=== PATIENT | female | born 1985 | race African-American/Black ===

== ENCOUNTER 2018-02-23 08:31 | Observation (INO) | payer SELFPAY ==
[~2018-02-23] VITALS: Ht 167.6 cm; Wt 72.6 kg
[2018-02-23] MEDS ORDERED: LIDOCAINE HCL 1% 20ML VIAL (Pyxis) INJ INFIL PRN (08:45)
[2018-02-23] MEDS ORDERED: METHYLERGONOVINE MALEATE 0.2 MG/ML IM PRN (08:45)
[2018-02-23 10:00] LABS: CLARITY URINE CLEAR (CLEAR); COLOR URINE DARK YELLOW (YELLOW); KETONES URINE TRACE (NEGATIVE); LEUKOCYTE ESTERASE URINE TRACE (NEGATIVE); NITRITE URINE NEGATIVE (NEGATIVE); OCCULT BLOOD URINE NEGATIVE (NEGATIVE); PH URINE 5.5 (4.5-8.0); PROTEIN URINE 1+ (NEGATIVE); SPECIFIC GRAVITY URINE 1.031 (1.005-1.030)
[2018-02-23 10:09] LABS: HEMATOCRIT. 24.2 % (36.0-48.0); HEMOGLOBIN. 7.5 g/dL (12.0-16.0); MEAN CORPUSCULAR HEMOGLOBIN 21.4 pg (28.0-32.0); MEAN CORPUSCULAR VOLUME 69.7 fL (81.0-99.0); PLATELET 270 x1000/uL (130-400); RED BLOOD CELL COUNT 3.48 mill/uL (4.2-5.4); RED CELL DISTRIBUTION WIDTH 17.2 % (11.6-14.6)
[2018-02-23 10:13] LABS: CHLORIDE 103 mEq/L (98-107)
[2018-02-23] MEDS: LACTATED RINGERS 1,000 ML IV SCH (10:41)
[2018-02-23] MEDS: DEXT 5%/LR + PITOCIN 20UNITS/L 1,000 ML IV SCH ×2 (10:54→11:11)
[2018-02-23 11:03] LABS: *COCAINE SCREEN URINE NEGATIVE (NEGATIVE); CANNABINOID URINE SCREEN NEGATIVE (NEGATIVE); METHADONE URINE SCREEN NEGATIVE (NEGATIVE); OPIATES URINE SCREEN NEGATIVE (NEGATIVE); PHENCYCLIDINE URINE SCREEN NEGATIVE (NEGATIVE)
[2018-02-23 11:05] LABS: *BENZODIAZEPINES SCREEN URINE NEGATIVE (NEGATIVE)
[2018-02-23 11:11] LABS: *BARBITURATES SCREEN URINE NEGATIVE (NEGATIVE)
[2018-02-23 11:21] LABS: *AMPHETAMINES SCREEN URINE PRESUMTIVE POSITIVE (NEGATIVE)
[2018-02-23] MEDS ORDERED: HYDRALAZINE 20MG/ML VIAL IV NR (11:30)
[2018-02-23 11:44] LABS: HEPATITIS B SURFACE ANTIGEN NEGATIVE; RUBELLA IGG 8.8 IU/mL (4.99-10)
[2018-02-23 11:53] LABS: PROTHROMBIN TIME 10.1 sec (9.4-11.6)
[2018-02-23] MEDS: LABETALOL HCL 100MG TABLET PO SCH ×2 (11:55→23:59)
[2018-02-23 12:45] VITALS: BP 129/88
[2018-02-23 13:02] LABS: PLATELET ESTIMATE NORMAL
[2018-02-23 13:15] VITALS: BP 124/79
[2018-02-23] MEDS ORDERED: DEXT 5%/LR + PITOCIN 20UNITS/L 1,000 ML IV SCH (14:18)
[2018-02-23] MEDS ORDERED: RHO(D) IMMUNE GLOBULIN 300 MCG/SYR IM PRN (14:30)
[2018-02-23] MEDS ORDERED: IBUPROFEN 400MG TABLET PO PRN (14:30)
[2018-02-23] MEDS ORDERED: ACETAMINOPHEN WITH CODEINE 300/30MG TABLET PO PRN ×2 (14:30)
[2018-02-23] MEDS ORDERED: TETANUS, DIPHTHERIA, PERTUSSIS VAC/PF 0.5ML (>7YR OLD) IM ONE (14:30)
[2018-02-23] MEDS ORDERED: DIPHENHYDRAMINE 25MG CAPSULE PO PRN (14:30)
[2018-02-23 20:10] VITALS: BP 134/77
[2018-02-23] MEDS: DOCUSATE SODIUM 100MG CAPSULE PO SCH (21:00)
[2018-02-23 23:55] VITALS: BP 141/93
[2018-02-24 03:35] VITALS: BP 130/77
[2018-02-24 07:51] LABS: BASOPHILS % 0.4 % (0.0-2.0); EOSINOPHILS % 10.7 % (0.0-5.0); LYMPHOCYTES % 9.2 % (20.0-50.0); MEAN CORPUSCULAR HEMOGLOBIN 21.4 pg (28.0-32.0); MEAN CORPUSCULAR VOLUME 68.5 fL (81.0-99.0); MEAN PLATELET VOLUME 7.9 fl (7.4-10.4); MONOCYTES % 6.5 % (2.0-8.0); NEUTROPHILS % 73.2 % (40.0-76.0); PLATELET 252 x1000/uL (130-400); RED BLOOD CELL COUNT 2.93 mill/uL (4.2-5.4); RED CELL DISTRIBUTION WIDTH 17.1 % (11.6-14.6)
[2018-02-24 08:08] LABS: HEMOGLOBIN. 6.3 g/dL (12.0-16.0)
[2018-02-24 08:09] LABS: HEMATOCRIT. 20.1 % (36.0-48.0)
[2018-02-24 08:10] VITALS: BP 124/67
[2018-02-24] MEDS ORDERED: PRENATAL VIT/FE FUMARATE/FA TABLET PO SCH (09:00)
[2018-02-24] MEDS: FERROUS SULFATE 325MG TABLET PO SCH ×3 (09:04→13:32)
[2018-02-24] MEDS ORDERED: MEDROXYPROGESTERONE ACETATE 150MG/ML VIAL IM NR (09:30)
[2018-02-24 12:00] VITALS: BP 133/81
[2018-02-24 16:20] VITALS: BP 136/77
[2018-02-24 19:55] VITALS: BP 127/77
[2018-02-24] MEDS: LABETALOL HCL 100MG TABLET PO SCH (21:12)
[2018-02-24] MEDS: DOCUSATE SODIUM 100MG CAPSULE PO SCH (21:12)
[2018-02-24 23:40] VITALS: BP 111/77
[2018-02-25 03:45] VITALS: BP 123/65
[2018-02-25 08:30] VITALS: BP 138/79
[2018-02-25 10:07] LABS: RF PROFILE 11.8 IU/mL (0.0-13.9)
[2018-03-02 05:24] LABS: AMPHETAMINE CONF URINE Positive (.)
== END 2018-02-25 09:00 | disposition home or self-care (01) ==
LOC: L&D 08:31 → 7EST PP/OB 12:40
PROVIDERS: ADMIT Specialist; ATTEND Specialist
DX: O72.0 Third-stage hemorrhage (principal); O99.02 Anemia complicating childbirth; D64.9 Anemia, unspecified; O99.324 Drug use complicating childbirth; O99.314 Alcohol use complicating childbirth; F15.10 Other stimulant abuse, uncomplicated; F10.10 Alcohol abuse, uncomplicated; Z37.0 Single live birth
CPT/HCPCS: 36415; 80053; 80305; 80307; 80359; 81003; 85025; 85610; 86200; 86431; 86592; 86703; 86762; 86850; 86900; 86901; 87340; 88307; 96372; 96374; G0378; J0360; J1050; J7040; J7120; J2590

== ENCOUNTER 2019-12-20 05:09 | Emergency (ER) | payer MEDICAID ==
[~2019-12-20] VITALS: Ht 167.6 cm; Wt 68.0 kg
[2019-12-20 05:12] VITALS: BP 125/72
[2019-12-20 07:34] LABS: CLARITY URINE CLEAR (CLEAR); COLOR URINE YELLOW (YELLOW); KETONES URINE TRACE (NEGATIVE); LEUKOCYTE ESTERASE URINE 1+ (NEGATIVE); NITRITE URINE NEGATIVE (NEGATIVE); OCCULT BLOOD URINE NEGATIVE (NEGATIVE); PROTEIN URINE TRACE (NEGATIVE); SPECIFIC GRAVITY URINE 1.033 (1.005-1.030)
== END 2019-12-20 08:30 | disposition left against medical advice (07) ==
LOC: ER 05:09
DX: O23.42 Unspecified infection of urinary tract in pregnancy, second trimester (principal); Z20.2 Contact with and (suspected) exposure to infections with a predominantly sexual mode of transmission; Z3A.20 20 weeks gestation of pregnancy
CPT/HCPCS: 81003; 81025; 99283

== ENCOUNTER 2020-01-14 22:10 | Emergency (ER) | payer MEDICAID ==
[~2020-01-14] VITALS: Ht 167.6 cm; Wt 80.0 kg
[2020-01-14 22:29] VITALS: BP 133/59
== END 2020-01-14 22:40 | disposition home or self-care (01) ==
LOC: ER 22:10
DX: R10.9 Unspecified abdominal pain (principal); Z53.21 Procedure and treatment not carried out due to patient leaving prior to being seen by health care provider
CPT/HCPCS: 99281

== ENCOUNTER 2020-01-14 23:05 | Observation (INO) | payer MEDICAID ==
[~2020-01-14] VITALS: Ht 167.6 cm; Wt 63.5 kg
== END 2020-01-14 23:55 | disposition home or self-care (01) ==
LOC: 8 EST LDRP 23:05
PROVIDERS: ADMIT Obstetrics & Gynecology; ATTEND Obstetrics & Gynecology
DX: O26.893 Other specified pregnancy related conditions, third trimester (principal); R10.13 Epigastric pain; Z3A.29 29 weeks gestation of pregnancy
CPT/HCPCS: 99281; G0378

== ENCOUNTER 2020-02-14 09:59 | Inpatient (IN) | payer MEDICAID ==
[~2020-02-14] VITALS: Ht 167.6 cm; Wt 61.2 kg
[2020-02-14] MEDS ORDERED: DEXT 5%/LR + PITOCIN 20UNITS/L 1,000 ML IV SCH ×2 (11:27→11:28)
[2020-02-14] MEDS ORDERED: LACTATED RINGERS 1,000 ML IV SCH (11:27)
[2020-02-14] MEDS ORDERED: RHO(D) IMMUNE GLOBULIN 300 MCG/SYR IM PRN (11:30)
[2020-02-14] MEDS ORDERED: METHYLERGONOVINE MALEATE 0.2 MG/ML IM PRN (11:30)
[2020-02-14] MEDS ORDERED: IBUPROFEN 400MG TABLET PO PRN (11:30)
[2020-02-14] MEDS ORDERED: IBUPROFEN 800MG TABLET PO PRN (11:30)
[2020-02-14] MEDS ORDERED: CARBOPROST TROMETHAMINE 250 MCG/ML AMPUL IM PRN (11:30)
[2020-02-14 12:55] LABS: HEMATOCRIT. 33.9 % (36.0-48.0); HEMOGLOBIN. 10.9 g/dL (12.0-16.0); MEAN CORPUSCULAR HEMOGLOBIN 24.6 pg (28.0-32.0); MEAN CORPUSCULAR VOLUME 76.3 fL (81.0-99.0); MEAN PLATELET VOLUME 8.3 fl (7.4-10.4); PLATELET 245 x1000/uL (130-400); RED BLOOD CELL COUNT 4.44 mill/uL (4.2-5.4); RED CELL DISTRIBUTION WIDTH 20.9 % (11.6-14.6)
[2020-02-14 13:13] LABS: CLARITY URINE CLEAR (CLEAR); COLOR URINE DARK YELLOW (YELLOW); KETONES URINE TRACE (NEGATIVE); LEUKOCYTE ESTERASE URINE 1+ (NEGATIVE); NITRITE URINE NEGATIVE (NEGATIVE); OCCULT BLOOD URINE 1+ (NEGATIVE); PROTEIN URINE 1+ (NEGATIVE)
[2020-02-14 13:38] LABS: HEPATITIS B SURFACE ANTIGEN NEGATIVE
[2020-02-14 13:41] LABS: PLATELET ESTIMATE NORMAL
[2020-02-14 13:47] LABS: CHLORIDE 103 mEq/L (98-107)
[2020-02-14 13:49] LABS: *BARBITURATES SCREEN URINE NEGATIVE (NEGATIVE); *BENZODIAZEPINES SCREEN URINE NEGATIVE (NEGATIVE); *COCAINE SCREEN URINE NEGATIVE (NEGATIVE); METHADONE URINE SCREEN NEGATIVE (NEGATIVE); OPIATES URINE SCREEN NEGATIVE (NEGATIVE); PHENCYCLIDINE URINE SCREEN NEGATIVE (NEGATIVE)
[2020-02-14 13:51] LABS: CANNABINOID URINE SCREEN NEGATIVE (NEGATIVE)
[2020-02-14 14:59] LABS: *AMPHETAMINES SCREEN URINE PRESUMTIVE POSITIVE (NEGATIVE)
[2020-02-14 15:00] VITALS: BP 126/83
[2020-02-14 15:45] VITALS: BP 122/87
[2020-02-14 16:44] VITALS: BP 125/83
[2020-02-14 22:00] VITALS: BP 121/82
[2020-02-15 05:00] VITALS: BP 123/81
[2020-02-15 06:46] LABS: BASOPHILS % 0.3 % (0.0-2.0); HEMATOCRIT. 29.9 % (36.0-48.0); HEMOGLOBIN. 9.6 g/dL (12.0-16.0); LYMPHOCYTES % 9.7 % (20.0-50.0); MEAN CORPUSCULAR HEMOGLOBIN 24.4 pg (28.0-32.0); MEAN PLATELET VOLUME 8.7 fl (7.4-10.4); MONOCYTES % 6.9 % (2.0-8.0); NEUTROPHILS % 82.1 % (40.0-76.0); PLATELET 253 x1000/uL (130-400); RED BLOOD CELL COUNT 3.94 mill/uL (4.2-5.4); RED CELL DISTRIBUTION WIDTH 20.3 % (11.6-14.6)
[2020-02-15 07:57] VITALS: BP 123/76
[2020-02-23 13:06] LABS: AMPHETAMINE CONF URINE Positive (.)
== END 2020-02-15 15:50 | disposition home or self-care (01) | DRG 560 ==
LOC: 8 EST LDRP 09:59 → OBSVTOIN 09:59 → 8EST 19:56
PROVIDERS: ADMIT Obstetrics & Gynecology; ATTEND Obstetrics & Gynecology
PROC: 10E0XZZ Delivery of Products of Conception, External Approach (ICD-10-PCS; principal; 2020-02-14)
DX: O80 Encounter for full-term uncomplicated delivery (principal); Z37.0 Single live birth; Z3A.38 38 weeks gestation of pregnancy
CPT/HCPCS: 36415; 80053; 80305; 80307; 80359; 81003; 85025; 86592; 86703; 86762; 86850; 86900; 87340; 99281; J2590; J7120

== ENCOUNTER 2022-12-25 02:49 | Emergency (ER) | payer MEDICAID, OTHER | END 2022-12-25 03:47 | disposition left against medical advice (07) | LOC: ER 02:49 | DX: Z53.21 Procedure and treatment not carried out due to patient leaving prior to being seen by health care provider (principal) | CPT/HCPCS: 99281 ==